=== PATIENT | male | born 1990 | race American Indian/Alaskan Native ===

== ENCOUNTER 2019-10-31 22:01 | Emergency (ER) | payer SELFPAY ==
--- NOTE | 2019-10-31 22:11 | Emergency Department Report ---
Blank Doc - Documentation Documentation: 29-year-old male that presents with left sided chest pain x2 hours. Denies any SOB. This initial assessment/diagnostic orders/clinical plan/treatment(s) is/are subject to change based on patient's health status, clinical progression and re- assessment by fellow clinical providers in the ED. Further treatment and workup at subsequent clinical providers discretion. Patient/guardians urged not to elope from the ED as their condition may be serious if not clinically assessed and managed. Initial orders include: 1- Patient sent to [facility] for further evaluation and treatment 2- CXR 3- EKG
--- NOTE | 2019-10-31 22:48 | XRay Report ---
CHEST 2 VIEWS INDICATION / CLINICAL INFORMATION: Chest pain. COMPARISON: None available. FINDINGS: SUPPORT DEVICES: None. HEART / MEDIASTINUM: No significant abnormality. LUNGS / PLEURA: No significant pulmonary or pleural abnormality. No pneumothorax. ADDITIONAL FINDINGS: No significant additional findings. IMPRESSION: 1. No acute findings. Signer Name: Elieser Danielle MD Signed: 10/31/2019 10:44 PM Workstation Name: [id number]
[2019-10-31 23:44] VITALS: BP 138/88
== END 2019-10-31 23:55 | disposition left against medical advice (07) ==
LOC: ED 22:01
DX: R07.9 Chest pain, unspecified (principal); Z53.21 Procedure and treatment not carried out due to patient leaving prior to being seen by health care provider
CPT/HCPCS: 71046; 93005; 93010

== ENCOUNTER 2019-11-02 03:12 | Emergency (ER) | payer SELFPAY ==
--- NOTE | 2019-11-02 04:52 | Emergency Department Report ---
<JACK VANESSA - Last Filed: 11/02/19 05:57> ED Psych HPI - General Stated Complaint: MH Time Seen by Provider: 11/02/19 04:52 Source: patient - History of Present Illness Initial Comments: patient forced himself in ER with delusions that someone was after him to kill him. Police was called and patient was apprehended, but remained psychotic therefore he was brought to ER for further treatment. - Related Data Home Medications Medication Instructions Recorded Confirmed Last Taken Mirtazapine [Remeron 30mg TAB] 30 mg PO QHS 11/04/19 11/04/19 Unknown Allergies Allergy/AdvReac Type Severity Reaction Status Date / Time shellfish derived Allergy Anaphylaxis Verified 10/31/19 22:13 ED Review of Systems Comment: All other systems reviewed and negative Constitutional: denies: chills ENT: denies: ear pain Respiratory: denies: cough Gastrointestinal: denies: nausea Genitourinary: denies: urgency Psychiatric: anxiety, depression, auditory hallucinations, visual hallucinations ED Past Medical Hx - Social History Smoking Status: Current Every Day Smoker Substance Use Type: Alcohol, Marijuana, Prescribed, Other - Medications Home Medications: Home Medications Medication Instructions Recorded Confirmed Last Taken Type Mirtazapine [Remeron 30mg TAB] 30 mg PO QHS 11/04/19 11/04/19 Unknown History ED Physical Exam - General General appearance: alert - Head Head exam: Present: atraumatic, normocephalic - Eye Eye exam: Present: normal appearance - ENT ENT exam: Present: mucous membranes moist - Neck Neck exam: Present: normal inspection - Respiratory Respiratory exam: Present: normal lung sounds bilaterally. Absent: respiratory distress - Cardiovascular Cardiovascular Exam: Present: regular rate, normal rhythm. Absent: systolic murmur, diastolic murmur, rubs, gallop - GI/Abdominal GI/Abdominal exam: Present: soft, normal bowel sounds - Rectal Rectal exam: Present: deferred - Extremities Exam Extremities exam: Present: normal inspection - Back Exam Back exam: Present: normal inspection - Neurological Exam Neurological exam: Present: alert, oriented X3 - Psychiatric Psychiatric exam: Present: agitated, manic - Skin Skin exam: Present: warm, dry, intact, normal color. Absent: rash ED Disposition Clinical Impression: Paranoid delusion, Acute psychosis Disposition: DC/TX-65 PSY HOSP/PSY UNIT Condition: Stable Referrals: PRIMARY CAREMD [Primary Care Provider] - 3-5 Days <ANTONELLA HYDE - Last Filed: 11/04/19 17:08> ED Review of Systems ROS: Stated complaint: MH Other details as noted in HPI ED Course Vital Signs 11/02/19 11/02/19 11/02/19 06:00 06:10 20:00 Temperature 97.6 F 97.6 F 98.3 F Pulse Rate 89 89 73 Respiratory 18 18 18 Rate Blood Pressure 114/74 Blood Pressure 114/74 120/72 [Left] O2 Sat by Pulse 99 99 100 Oximetry 11/02/19 11/03/19 11/03/19 21:44 01:00 08:00 Temperature 98.0 F 97.7 F Pulse Rate 76 83 Respiratory 18 20 18 Rate Blood Pressure Blood Pressure 117/64 117/70 [Left] O2 Sat by Pulse 99 100 Oximetry 11/03/19 11/03/19 11/03/19 13:00 20:00 21:45 Temperature 98.2 F 97.8 F Pulse Rate 92 H 72 Respiratory 18 18 18 Rate Blood Pressure Blood Pressure 113/52 107/63 [Left] O2 Sat by Pulse 98 99 99 Oximetry 11/04/19 11/04/19 11/04/19 01:35 09:20 09:52 Temperature 97.9 F 97.5 F L Pulse Rate 76 79 Respiratory 22 22 18 Rate Blood Pressure Blood Pressure 110/61 127/75 [Left] O2 Sat by Pulse 98 98 100 Oximetry 11/04/19 13:53 Temperature 98.3 F Pulse Rate 82 Respiratory 18 Rate Blood Pressure Blood Pressure 107/68 [Left] O2 Sat by Pulse 98 Oximetry ED Medical Decision Making - Lab Data Result diagrams: 11/02/19 07:15 11/02/19 07:15 Critical care attestation.: If time is entered above; I have spent that time in minutes in the direct care of this critically ill patient, excluding procedure time. ED Disposition Is pt being admited?: No Does the pt Need Aspirin: No Time of Disposition: 17:08
[2019-11-02 07:34] LABS: Basophils # (Auto) 0.1 K/mm3 (0.0-0.1); Basophils % (Auto) 1.2 % (0.0-1.8); Eosinophils # (Auto) 0.2 K/mm3 (0.0-0.4); Eosinophils % (Auto) 2.1 % (0.0-4.3); Hematocrit 41.8 % (35.5-45.6); Hemoglobin 14.1 gm/dl (11.8-15.2); Lymphocytes # (Auto) 2.1 K/mm3 (1.2-5.4); Lymphocytes % (Auto) 26.5 % (13.4-35.0); Mean Corpuscular HGB Conc 34 % (32-34); Mean Corpuscular Volume 91 fl (84-94); Monocytes # (Auto) 0.6 K/mm3 (0.0-0.8); Monocytes % (Auto) 7.1 % (0.0-7.3); Platelet Count 212 K/mm3 (140-440)
[2019-11-02 07:55] LABS: Alanine Aminotransferase 45 units/L (7-56); Albumin 4.5 g/dL (3.9-5); BUN/Creatinine Ratio 15; Blood Urea Nitrogen 18 mg/dL (9-20); Calcium 9.3 mg/dL (8.4-10.2); Hemolysis Index 8
[2019-11-02 14:39] LABS: Bilirubin,Urine NEG (Negative); Blood,Urine NEG (Negative); Color,Urine Yellow (Yellow); Mucus,Urine 3+ /HPF; Protein,Urine <15 mg/dL mg/dL (Negative); Urobilinogen,Urine < 2.0 mg/dL (<2.0)
[2019-11-02 14:45] LABS: Benzodiazepines Screen,Urine PRESUMPTIVE NEGATIVE; Cannabinoid Screen,Urine PRESUMPTIVE NEGATIVE; Methadone Screen,Urine PRESUMPTIVE NEGATIVE; Opiate Screen,Urine PRESUMPTIVE NEGATIVE
[2019-11-02 14:58] LABS: Amphetamine Screen,Urine PRESUMPTIVE POSITIVE; Cocaine Screen,Urine PRESUMPTIVE POSITIVE
[2019-11-03] MEDS ORDERED: LORazepam 2 MG/ML VIAL IM PRN (11:31)
[2019-11-03] MEDS ORDERED: HALOPERIDOL LACTATE 5 MG/1 ML INJ IM PRN (11:31)
--- NOTE | 2019-11-03 11:31 | Consultation ---
History of Present Illness - Reason for Consult Consult date: 11/03/19 Reason for consult: Paranoid - Chief Complaint Chief complaint: Amigo tried to kill me - History of Present Psychiatric Illness The patient is a 29yo single employed male with history of Paranoid Schizophrenia, Cocaine and Amphetamine use disorder who presented to the ED very paranoid stating that someone is after him and trying to kill him. He is calmer this morning but still very paranoid and anxious. He admits to have been using Cocaine and Meth. UDS is positive for Cocaine and Amphetamines. He endorses hallucinations but denies SI/HI. Per MENTAL HEALTH ASSESSMENT: Pt is a 29 year old male who broke into the ED trying to get away from his boss who he believes in trying to kill him. "My boss is after me. I work with [employer]. He took my ID because I can't get my medicine." Pt is displaying evidence of thought disorder. Pt endorses AH/VH, "yeah I can see them because the people won't pay attention; if they pay attention they can see them too. I try to show them they be moving in the dark ya know." Pt is whispering throughout the assessment and appears very paranoid. Pt is responding to internal stimuli. Pt has poor insight and judgement. Pt has poor concentration and attention. Pt presents disheveled in appearance with partial eye contact. Pt reports he has a diagnosis of. "real bad Schizophrenia at night time; so, I can go now and call my mom. I take Remeron in the morning sometime for the paranoia, and they give me the shot too at [facility] for the paranoia. It's been like a week or 2 weeks since I got it." Pt reports that he is going to kill his boss; "I got to do what I got to do; he tryn to kill me." Pt has a history of aggression where the pt was in residential for 2 years; pt was recently released. The pt becomes extremely paranoid per the mother and acts aggressively. Mother reports, "I don't know what to do; he scares me. I can't do nothing for him." Pt denies suicidal ideation. Mother reports, "he tried to kill himself quite a few times. He took alot of pills and stuff like that." Pt gives no information about this. [place]; "I can't do them shelters because those people are after me." "my momma said she can't put up with me; I see my momma, and I tell her she don't gotta worry about me cause I'm gonna be alright." Pt reports that he is employed; mother said that the pt was receiving disability before he went to residential. "I smoke both." Pt reports that he smoke cigarettes and marijuana. Pt is unable to focus to tell the amount, when he first started using and the time of last use. Pt is fixated on leaving since it is now light outside; he would like to call his mother and go find his boss. PAST PSYCHIATRIC HISTORY: Diagnoses: Schizophrenia, MDD Suicide attempts or Self-harm behavior: no Prior psychiatric hospitalizations: yes at [facility] Substance Abuse history: Cocaine and Meth Previous psychiatric medications tried: Unknown Outpatient treatment: no Family Psychiatric History None reported or documented SOCIAL HISTORY Marital Status: single Living Arrangements: Homeless, [place] Employment Status: employed Access to guns/weapons: Patient denies Education: High School History of Abuse: Patient denies Legal History: Patient denies ROS: Constitutional: Negative for weight loss ENT: Negative for stridor Respiratory: Negative for cough or hemoptysis All other systems reviewed and are negative MENTAL STATUS General Appearance and Behavior: age appropriate, dishevelled, good eye contact, cooperative with questioning and polite Cooperation: Cooperative Psychomotor Behavior: within normal limits Mood: anxious Affect and affective range: Congruent with stated mood Thought Process: Fluent/Logical and Goal-directed Thought Content: Paranoid, AH Speech: Normal volume and Regular rate and rhythm Intellectual Functioning Average Suicidal Ideation: Denies SI Homicidal Ideation: Denies HI Impulse Control: intact Insight and Judgment: normal insight and judgment Memory: Normal Attention: Normal Orientation: alert and oriented Diagnoses: Paranoid Schizophrenia Substance induced psychosis Cocaine and Amphetamine use disorder RECOMMENDATIONS MEDICATIONS: Olanzapine 5mg bid Risks, benefits and alternatives of medications discussed with the patient, questions answered and consent obtained from patient. PSYCHOTHERAPY: Supportive psychotherapy provided MEDICAL: Per primary team. 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 Please contact with any questions and/or concerns. Medications and Allergies Allergies Allergy/AdvReac Type Severity Reaction Status Date / Time shellfish derived Allergy Anaphylaxis Verified 10/31/19 22:13 Home Medications Medication Instructions Recorded Confirmed Last Taken Type Ibuprofen [Motrin] 600 mg PO Q8H PRN #60 tablet 07/11/15 Unknown Rx Penicillin Vk [Veetids TAB] 500 mg PO QID #40 tablet 07/11/15 Unknown Rx traMADoL [Ultram] 50 mg PO Q6HR PRN #14 tablet 07/11/15 Unknown Rx Mental Status Exam - Vital signs Last Vital Signs Temp 97.7 F 11/03/19 08:00 Pulse 83 11/03/19 08:00 Resp 18 11/03/19 08:00 BP 117/70 11/03/19 08:00 Pulse Ox 100 11/03/19 08:00 Results Result Diagrams: 11/02/19 07:15 11/02/19 07:15 Abnormal lab results 11/02/19 Range/Units 13:47 Ur Specific [place] 1.032 H (1.003-1.030) All other labs normal.
--- NOTE | 2019-11-04 11:35 | Progress Note ---
Subjective - Reason for Consult Consult date: 11/04/19 Reason for consult: Psych eval - Chief Complaint Chief complaint: Amigo tried to kill me SUBJECTIVE Patient is paranoid and endorses distressing auditory hallucinations. He is compliant with medications and denies side effects. ROS: Constitutional: Negative for weight loss ENT: Negative for stridor Respiratory: Negative for cough or hemoptysis All other systems reviewed and are negative MENTAL STATUS General Appearance and Behavior: age appropriate, dishevelled, good eye contact, cooperative with questioning and polite Cooperation: Cooperative Psychomotor Behavior: within normal limits Mood: anxious Affect and affective range: Congruent with stated mood Thought Process: Fluent/Logical and Goal-directed Thought Content: Paranoid, AH Speech: Normal volume and Regular rate and rhythm Intellectual Functioning Average Suicidal Ideation: Denies SI Homicidal Ideation: Denies HI Impulse Control: intact Insight and Judgment: normal insight and judgment Memory: Normal Attention: Normal Orientation: alert and oriented Diagnoses: Paranoid Schizophrenia Substance induced psychosis Cocaine and Amphetamine use disorder RECOMMENDATIONS MEDICATIONS: Continue Olanzapine 5mg bid Risks, benefits and alternatives of medications discussed with the patient, questions answered and consent obtained from patient. PSYCHOTHERAPY: Supportive psychotherapy provided MEDICAL: Per primary team. HEALTHCARE LIAISON: Yes DISPOSITION: Acute inpatient psychiatric hospitalization when medically stable LEGAL STATUS: 1013 FOLLOW-UP: Will follow I have reviewed this treatment plan, including potential risks and benefits of medications, with the patient and/or family members and relevant hospital providers. Please contact with any questions and/or concerns. Mental Status Exam - Vital signs Last Vital Signs Temp 97.5 F L 11/04/19 09:52 Pulse 79 11/04/19 09:52 Resp 18 11/04/19 09:52 BP 127/75 11/04/19 09:52 Pulse Ox 100 11/04/19 09:52
[2019-11-04 13:54] VITALS: BP 107/68
[2019-11-04] MEDS ORDERED: MIRTAZAPINE 30 MG TAB PO SCH (22:00)
== END 2019-11-04 17:23 ==
LOC: ED 03:12
DX: F22 Delusional disorders (principal); F23 Brief psychotic disorder; F41.9 Anxiety disorder, unspecified; F12.10 Cannabis abuse, uncomplicated; F17.200 Nicotine dependence, unspecified, uncomplicated; Z79.899 Other long term (current) drug therapy; Z91.013 Allergy to seafood
CPT/HCPCS: 36415; 80053; 80307; 80320; 81001; 85025; G0480

== ENCOUNTER 2019-11-07 23:39 | Emergency (ER) | payer SELFPAY ==
[2019-11-08] MEDS ORDERED: diphenhydrAMINE 50 MG/ML VIAL IM ONE (00:19)
[2019-11-08] MEDS ORDERED: METOCLOPRAMIDE 10 MG/2 ML INJ IM ONE (00:19)
[2019-11-08] MEDS ORDERED: KETOROLAC 60 MG/2 ML INJ IM ONE (00:19)
--- NOTE | 2019-11-08 00:23 | Emergency Department Report ---
<DESIRE ALEXIS - Last Filed: 11/08/19 04:18> ED Psych HPI - General Chief Complaint: Psych Stated Complaint: MIGRAINE Time Seen by Provider: 11/08/19 00:07 Source: patient Mode of arrival: Ambulatory Limitations: No Limitations - History of Present Illness Initial Comments: 29-year-old male with a past medical history of paranoia, depression, bronchitis presents to the hospital with complaints of headache and suicidal ideation. Patient was just here for acute psychosis on November 01 and subsequently transferred to [facility] on November 03. Patient states he just wanted to get out of [facility]. He is taking the Risperdal as prescribed but states it causes him to have a migraine headache and his body to lock up. Patient denies a doctor diagnosis of migraines. Patient is having a 8/10 right-sided headache with mild blurry vision without nausea or vomiting. Patient is having some light sensitivity while looking at LED lights. When patient presented here several days ago UDS was positive for amphetamines and patient admitted to taking ecstasy at that time. Patient admits to petey radha use since discharge from [facility] but denies any other substance use at this time. Patient does feel like the Risperdal is helping to him to clear his mind and processed thoughts better. Patient states he is suicidal but does not have a plan. - Related Data Home Medications Medication Instructions Recorded Confirmed Last Taken Mirtazapine [Remeron 30mg TAB] 30 mg PO QHS 11/04/19 11/08/19 Unknown Allergies Allergy/AdvReac Type Severity Reaction Status Date / Time shellfish derived Allergy Anaphylaxis Verified 10/31/19 22:13 ED Review of Systems Comment: All other systems reviewed and negative ED Past Medical Hx - Past Medical History Previous Medical History?: Yes Hx Psychiatric Treatment: Yes (paranoid, depression) Additional medical history: Bronchitis - Surgical History Past Surgical History?: No - Social History Smoking Status: Current Every Day Smoker Substance Use Type: Alcohol, Cocaine, Marijuana - Medications Home Medications: Home Medications Medication Instructions Recorded Confirmed Last Taken Type Mirtazapine [Remeron 30mg TAB] 30 mg PO QHS 11/04/19 11/08/19 Unknown History ED Physical Exam - General Limitations: No Limitations - Other Other exam information: General: No acute distress Head: Atraumatic Eyes: normal appearance ENT: Moist mucous membranes Neck: Normal appearance, no midline tenderness, no nuchal rigidity Chest: Clear to auscultation bilaterally CV: Regular rate and rhythm Abdomen: Soft, normal bowel sounds, nontender, nondistended, no rebound or guarding Back: Normal inspection Extremity: Normal inspection, full range of motion Neuro: Alert O x 3, no facial asymmetry, speech clear, no gross motor sensory deficit Psych: Appropriate behavior Skin: No rash ED Medical Decision Making - Lab Data Result diagrams: 11/08/19 00:15 11/08/19 00:15 - Radiology Data Radiology results: report reviewed CT HEAD/BRAIN WO CON INDICATION / CLINICAL INFORMATION: Pt complains of a headache with pain mostly on the right side. TECHNIQUE: All CT scans at this location are performed using CT dose reduction for ALARA by means of automated exposure control. COMPARISON: None available. FINDINGS: The ventricular system is normal in size and configuration. No focal lesion or mass effect is seen. There is no evidence of intracranial hemorrhage or major vessel occlusion. The calvarium is intact. The visualized paranasal sinuses and mastoid air cells are clear. IMPRESSION: No acute abnormality. - Medical Decision Making Patient returns to the ED stating that the Risperdal is causing him to have a migraine headache and caused his body to lock up. Medical evaluation is unremarkable including CT head. Patient just was discharged from [facility] after being medically cleared here after presenting with psychosis and UDS positive for cocaine and amphetamines (patient admitted to ecstasy use). UDS is positive for cocaine at this time. Is unclear patient is continuing to use cocaine or if it is still positive from recent use. Pt is medically cleared for psych eval. 1013 signed - Differential Diagnosis Drug abuse, migraine, ICH, psychosis, suicidal Critical Care Time: No ED Disposition Clinical Impression: Paranoid delusion, Cocaine abuse, Acute hyperactive cannabis intoxication delirium Disposition: DC-01 TO HOME OR SELFCARE Is pt being admited?: No Does the pt Need Aspirin: No Condition: Stable <ANTONELLA HYDE - Last Filed: 11/08/19 12:11> ED Review of Systems ROS: Stated complaint: MIGRAINE Other details as noted in HPI ED Course Vital Signs 11/07/19 11/08/19 23:51 04:05 Temperature 97.9 F 97.8 F Pulse Rate 112 H 87 Respiratory 20 18 Rate Blood Pressure 134/82 Blood Pressure 98/64 [Right] O2 Sat by Pulse 96 98 Oximetry - Reevaluation(s) Reevaluation #1: 11/08/19 12:10 KEMAR LEE Male : 1990 MedRec# [id number] 11/08/19 10:00 - Crowd Controller's Note by RADHA BUSH Acct Num: [id number] : 1990 Patient Age: 29 MENTAL HEALTH ASSESSMENT COMPLETED: Pt is a 29 year old AA male who presents to the ER for headaches which the pt believes is possibly caused by his medications. Pt carries a diagnosis of Paranoid Schizophrenia. The pt was seen in the ED last week for paranoia, HI and SI. The pt was transferred to [facility] where the pt was stabilized. The pt reports no SI, HI or paranoia at this time. The pt has been compliant with his medications. The pt has no current outpatient providers. Pt is displaying no signs of thought disorder/psychosis. Pt is oriented x 4. Pt is able to identify the stressor that led him to come to the ED (pt reports he is having a headache and believes that it might be related to his medications.). Pt has good concentration, attention and memory. The pt is calm with congruent affect. The pt displayed good judgment by coming to the ED for headaches. Pt reports he is not currently suicidal; pt has no thoughts, plans or intent to harm himself. Pt reports that he told the nurse at the front he was having suicidal thoughts in the past, but he is not feeling this way currently. Pt reports that he came due to side effects of his medications. Pt denies any homicidal thoughts, plans or intent. Pt reports that he used, "a little marijuana yesterday;" pt's tox was negative for marijuana, but pt was postive for cocaine; however, pt reports he has not used any other substances since being admitted to [facility]. [place] near [facility]. Pt stated that he did not like staying at [facility] and [facility]; pt is open to looking at other skilled nursing options. Crowd Controller gave the pt information for [facility]'s 3rd floor mental health/homeless program and information for [facility]. RECOMMENDATION: Rescind 1013, provide outpatient referrals and list of skilled nursing resources. Radha Smith LPC Initialized on 11/08/19 10:00 - END OF NOTE ED Medical Decision Making - Lab Data Result diagrams: 11/08/19 00:15 11/08/19 00:15 - Radiology Data Findings [facility] [address] [place] [address] Cat Scan Report Signed Patient: KEMAR LEE MR#: [id number] : 1990 Acct:[id number] Age/Sex: 29 / M ADM Date: 11/07/19 Loc: ED Attending Dr: Ordering Physician: DESIRE ALEXIS MD Date of Service: 11/08/19 Procedure(s): CT head/brain wo con Accession Number(s): [id number] cc: DESIRE ALEXIS MD CT HEAD/BRAIN WO CON INDICATION / CLINICAL INFORMATION: Pt complains of a headache with pain mostly on the right side. TECHNIQUE: All CT scans at this location are performed using CT dose reduction for ALARA by means of automated exposure control. COMPARISON: None available. FINDINGS: The ventricular system is normal in size and configuration. No focal lesion or mass effect is seen. There is no evidence of intracranial hemorrhage or major vessel occlusion. The calvarium is intact. The visualized paranasal sinuses and mastoid air cells are clear. IMPRESSION: No acute abnormality. Signer Name: Kin Lee MD Signed: 11/08/2019 12:54 AM Workstation Name: [id number] Critical care attestation.: If time is entered above; I have spent that time in minutes in the direct care of this critically ill patient, excluding procedure time. ED Disposition Is pt being admited?: No Does the pt Need Aspirin: No Time of Disposition: 12:11
[2019-11-08 00:47] LABS: Basophils % (Auto) 0.6 % (0.0-1.8); Eosinophils # (Auto) 0.1 K/mm3 (0.0-0.4); Hematocrit 40.6 % (35.5-45.6); Hemoglobin 13.9 gm/dl (11.8-15.2); Lymphocytes # (Auto) 1.9 K/mm3 (1.2-5.4); Lymphocytes % (Auto) 25.3 % (13.4-35.0); Mean Corpuscular HGB Conc 34 % (32-34); Mean Corpuscular Volume 91 fl (84-94); Monocytes # (Auto) 0.6 K/mm3 (0.0-0.8); Monocytes % (Auto) 8.2 % (0.0-7.3); Platelet Count 217 K/mm3 (140-440); Red Blood Count 4.48 M/mm3 (3.65-5.03); Red Cell Distribution Width 14.6 % (13.2-15.2)
--- NOTE | 2019-11-08 00:58 | Cat Scan Report ---
CT HEAD/BRAIN WO CON INDICATION / CLINICAL INFORMATION: Pt complains of a headache with pain mostly on the right side. TECHNIQUE: All CT scans at this location are performed using CT dose reduction for ALARA by means of automated e xposure control. COMPARISON: None available. FINDINGS: The ventricular system is normal in size and configuration. No focal lesion or mass effect is seen. T here is no evidence of intracranial hemorrhage or major vessel occlusion. The calvarium is intact. The visualized paranasal sinuses and mastoid air cells are clear. IMPRESSION: No acute abnormality. Signer Name: Kin Lee MD Signed: 11/08/2019 12:54 AM Workstation Name: [id number]
[2019-11-08 01:03] LABS: BUN/Creatinine Ratio 10; Blood Urea Nitrogen 10 mg/dL (9-20); Calcium 9.5 mg/dL (8.4-10.2); Hemolysis Index 10
[2019-11-08 03:26] LABS: Mucus,Urine 3+ /HPF
[2019-11-08 03:27] LABS: Bilirubin,Urine NEG (Negative); Blood,Urine NEG (Negative); Color,Urine Amber (Yellow)
[2019-11-08 04:06] LABS: Amphetamine Screen,Urine PRESUMPTIVE NEGATIVE; Benzodiazepines Screen,Urine PRESUMPTIVE NEGATIVE; Cannabinoid Screen,Urine PRESUMPTIVE NEGATIVE; Methadone Screen,Urine PRESUMPTIVE NEGATIVE; Opiate Screen,Urine PRESUMPTIVE NEGATIVE
[2019-11-08 04:22] LABS: Cocaine Screen,Urine PRESUMPTIVE POSITIVE
[2019-11-08 05:09] VITALS: BP 98/64
== END 2019-11-08 15:20 | disposition home or self-care (01) ==
LOC: ED 23:39 → EEVIPCON 23:39 → ED 11-08 15:20
DX: F22 Delusional disorders (principal); F12.921 Cannabis use, unspecified with intoxication delirium; F14.10 Cocaine abuse, uncomplicated
CPT/HCPCS: 36415; 70450; 80048; 80307; 81001; 82550; 85025; 96372; 99284; J1200; J1885; J2765; 80320; G0480

== ENCOUNTER 2019-11-10 18:41 | Emergency (ER) | payer SELFPAY ==
[2019-11-10] MEDS ORDERED: LORazepam 2 MG/ML VIAL IM PRN (19:14)
[2019-11-10 21:19] LABS: Basophils % (Auto) 0.3 % (0.0-1.8); Eosinophils % (Auto) 0.3 % (0.0-4.3); Hematocrit 41.7 % (35.5-45.6); Hemoglobin 14.1 gm/dl (11.8-15.2); Lymphocytes # (Auto) 1.3 K/mm3 (1.2-5.4); Lymphocytes % (Auto) 15.1 % (13.4-35.0); Mean Corpuscular HGB Conc 34 % (32-34); Mean Corpuscular Volume 90 fl (84-94); Monocytes # (Auto) 0.6 K/mm3 (0.0-0.8); Monocytes % (Auto) 6.5 % (0.0-7.3); Platelet Count 230 K/mm3 (140-440); Red Blood Count 4.63 M/mm3 (3.65-5.03); Red Cell Distribution Width 14.5 % (13.2-15.2)
[2019-11-10 21:49] LABS: Alanine Aminotransferase 13 units/L (7-56); Albumin 4.7 g/dL (3.9-5); BUN/Creatinine Ratio 12; Blood Urea Nitrogen 13 mg/dL (9-20); Calcium 9.6 mg/dL (8.4-10.2); Hemolysis Index 9
--- NOTE | 2019-11-10 21:54 | Emergency Department Report ---
HPI - General Chief Complaint: Psych Time Seen by Provider: 11/10/19 19:13 - HPI HPI: 29-year-old -[place] male presents to the emergency department for a mental health evaluation. The patient was recently at [facility] as of the end of October. The patient also came through this emergency department 2 days ago with a complaint of some suicidal ideations. He was ultimately discharged and apparently did not meet criteria for inpatient psychiatric treatment at that time. He says that he met with the rn social work here and was given some referrals for shelters. However, "because of coronavirus" he was unable to get into 1 of the shelters. The patient says that he is homeless and ultimately was able to find some correction in a local abandoned house/building where there are other squatters who will allow him to spend the evening and it often involves doing some drugs. The patient presents today with the complaint of paranoid delusions and says that he feels that someone is trying to kill him. He says that he has not been able to "get my mind right" and is concerned that it is present state of mind that he might harm somebody or himself. ED Past Medical Hx - Past Medical History Previous Medical History?: Yes Hx Psychiatric Treatment: Yes (paranoid, depression) Additional medical history: Bronchitis - Surgical History Past Surgical History?: No - Social History Smoking Status: Current Every Day Smoker Substance Use Type: Alcohol, Cocaine, Marijuana - Medications Home Medications: Home Medications Medication Instructions Recorded Confirmed Last Taken Type Mirtazapine [Remeron 30mg TAB] 30 mg PO QHS 11/04/19 11/10/19 Unknown History ED Review of Systems ROS: Stated complaint: PSYCH EVAL Other details as noted in HPI Comment: All other systems reviewed and negative Constitutional: denies: chills, fever Respiratory: denies: cough, shortness of breath Cardiovascular: denies: chest pain Gastrointestinal: denies: abdominal pain, vomiting Neurological: denies: headache, weakness Psychiatric: depression, homicidal thoughts, suicidal thoughts Physical Exam - Physical Exam Vital Signs: Vital Signs 11/10/19 11/10/19 18:51 19:14 Temperature 99.8 F H Pulse Rate 122 H Blood Pressure 140/77 O2 Sat by Pulse 97 Oximetry ED Course Vital Signs 11/10/19 11/10/19 18:51 19:14 Temperature 99.8 F H Pulse Rate 122 H Blood Pressure 140/77 O2 Sat by Pulse 97 Oximetry ED Medical Decision Making - Lab Data Result diagrams: 11/10/19 21:08 11/10/19 21:08 - EKG Data -: EKG Interpreted by Me EKG shows normal: sinus rhythm, axis, intervals, QRS complexes, ST-T waves Rate: normal - EKG Data When compared to previous EKG there are: previous EKG unavailable Interpretation: normal EKG Critical care attestation.: If time is entered above; I have spent that time in minutes in the direct care of this critically ill patient, excluding procedure time. ED Disposition Clinical Impression: Medical clearance for psychiatric admission, Paranoid delusion, Cocaine abuse Disposition: [id number] PSY HOSP/PSY UNIT Is pt being admited?: No Condition: Stable Time of Disposition: 16:15
[2019-11-10 22:21] LABS: Bacteria,Urine 1+ /HPF (Negative); Bilirubin,Urine NEG (Negative); Blood,Urine MOD (Negative); Color,Urine Yellow (Yellow); Mucus,Urine 3+ /HPF
[2019-11-10 22:28] LABS: Benzodiazepines Screen,Urine PRESUMPTIVE NEGATIVE; Cannabinoid Screen,Urine PRESUMPTIVE NEGATIVE; Methadone Screen,Urine PRESUMPTIVE NEGATIVE; Opiate Screen,Urine PRESUMPTIVE NEGATIVE
[2019-11-10 23:01] LABS: Amphetamine Screen,Urine PRESUMPTIVE POSITIVE; Cocaine Screen,Urine PRESUMPTIVE POSITIVE
[2019-11-12 02:03] VITALS: BP 106/73
--- NOTE | 2019-11-12 11:09 | Consultation ---
History of Present Illness - Reason for Consult Consult date: 11/12/19 Reason for consult: Psych eval - Chief Complaint Chief complaint: I want to go to a program - History of Present Psychiatric Illness The patient is a 29yo single unemployed homeless male with history of Paranoid Schizophrenia, Cocaine and Amphetamine use disorder who presented to the ED stating that he is suicidal and homicidal. This patient is well known here and was recently admitted to [facility]. He admits to have been using Cocaine and Meth. UDS is positive for Cocaine and Amphetamines. This morning, he is alert, fully oriented and states that he wants to be sent to a program, that he is homeless and has no where to stay. Per MENTAL HEALTH ASSESSMENT: Pt is a 29 yo AA male presenting to ED for MHE, as pt stated Im going to hurt somebody during admission. Pt is known to [facility] Psych Department and has been seen 3 times within the past 7 days. Pt was transferred to [facility] 11/04/2019 and returned to ED 11/07, which resulted in psych clearance and discharge with OP resources provided. During ax, pt stated Well it was scot fault that Im in this situation because scot was supposed to get me in a program. Pt then continued to tell director speech that [facility] did not accept him into their homeless detention. Pt presents as lucid, informing director speech that he last came to the ED because he wanted his medication changed due to the side effects and that he was provided with homeless resources instead. Pt is alert and oriented x 4, and no outburst were displayed during assessment. Pt has a dx of Paranoid Schizophrenia and denied connection to OP tx, informing director speech that he is homeless and does not have any money. 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 Pt identifies last use as Monday. Pt identified V/H of seeing footsteps and paranoia, informing director speech that he believes people are following him. Pt informed director speech that he was a danger to himself/other people and that he might hurt somebody if they come close to him. PAST PSYCHIATRIC HISTORY: Diagnoses: Schizophrenia, MDD Suicide attempts or Self-harm behavior: no Prior psychiatric hospitalizations: yes at [facility] Substance Abuse history: Cocaine and Meth Previous psychiatric medications tried: Unknown Outpatient treatment: no Family Psychiatric History None reported or documented SOCIAL HISTORY Marital Status: single Living Arrangements: Homeless, lives under the bridge Employment Status: employed Access to guns/weapons: Patient denies Education: High School History of Abuse: Patient denies Legal History: Patient denies ROS: Constitutional: Negative for weight loss ENT: Negative for stridor Respiratory: Negative for cough or hemoptysis All other systems reviewed and are negative MENTAL STATUS General Appearance and Behavior: age appropriate, dishevelled, good eye contact, cooperative with questioning and polite Cooperation: Cooperative Psychomotor Behavior: within normal limits Mood: anxious Affect and affective range: Congruent with stated mood Thought Process: Fluent/Logical and Goal-directed Thought Content: Paranoid, AH Speech: Normal volume and Regular rate and rhythm Intellectual Functioning Average Suicidal Ideation: SI Homicidal Ideation: Denies HI Impulse Control: intact Insight and Judgment: normal insight and judgment Memory: Normal Attention: Normal Orientation: alert and oriented Diagnoses: Paranoid Schizophrenia Substance induced psychosis Cocaine and Amphetamine use disorder Seeking Secondary gains RECOMMENDATIONS MEDICATIONS: Will give a prescription of Olanzapine 5mg bid Risks, benefits and alternatives of medications discussed with the patient, questions answered and consent obtained from patient. PSYCHOTHERAPY: Supportive psychotherapy provided MEDICAL: Per primary team. 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 Acute psychiatric inpatient treatment is contraindicated as it will reinforce maladaptive behaviors. LEGAL STATUS: 1013 rescinded FOLLOW-UP: Will sign off Please contact with any questions and/or concerns. Medications and Allergies Allergies Allergy/AdvReac Type Severity Reaction Status Date / Time shellfish derived Allergy Anaphylaxis Verified 10/31/19 22:13 Home Medications Medication Instructions Recorded Confirmed Last Taken Type Mirtazapine [Remeron 30mg TAB] 30 mg PO QHS 11/04/19 11/10/19 Unknown History Active Meds: Active Medications Lorazepam (Ativan) 1 mg IM PRN PRN PRN Reason: Agitation Last Admin: 11/10/19 20:28 Dose: 1 mg Documented by: Mental Status Exam - Vital signs Last Vital Signs Temp 97.7 F 11/12/19 02:02 Pulse 76 11/12/19 02:02 Resp 16 11/12/19 02:02 BP 106/73 11/12/19 02:02 Pulse Ox 98 11/12/19 02:02 Results Result Diagrams: 11/10/19 21:08 11/10/19 21:08 All other labs normal.
== END 2019-11-12 12:30 | disposition home or self-care (01) ==
LOC: ED 18:41 → EEVIPCON 18:41 → ED 11-12 12:30
DX: F20.0 Paranoid schizophrenia (principal); F14.10 Cocaine abuse, uncomplicated; F17.200 Nicotine dependence, unspecified, uncomplicated; Z04.6 Encounter for general psychiatric examination, requested by authority; Z79.899 Other long term (current) drug therapy; Z91.013 Allergy to seafood
CPT/HCPCS: 36415; 80053; 80307; 81001; 82550; 83735; 84443; 85025; 93005; 93010; 99283; J2060; 80320; G0480

== ENCOUNTER 2021-03-09 22:21 | Emergency (ER) | payer SELFPAY | END 2021-03-10 00:01 | disposition left against medical advice (07) | LOC: ED 22:21 | DX: Z01.89 Encounter for other specified special examinations (principal); Z53.21 Procedure and treatment not carried out due to patient leaving prior to being seen by health care provider ==

== ENCOUNTER 2021-11-08 16:20 | Emergency (ER) | payer SELFPAY ==
[2021-11-08] MEDS ORDERED: HALOPERIDOL LACTATE 5 MG/1 ML INJ IM PRN (16:49)
[2021-11-08] MEDS ORDERED: diphenhydrAMINE 50 MG/ML VIAL IM PRN (16:49)
[2021-11-08] MEDS ORDERED: LORazepam 2 MG/ML VIAL IM PRN (16:49)
[2021-11-08] MEDS ORDERED: LORazepam 2 MG/ML VIAL IV PRN ×3 (16:49)
[2021-11-08] MEDS ORDERED: TETANUS,DIPH,PERTUSS(ACELL) VACCINE 0.5 ML SYRINGE IM ONE (16:52)
--- NOTE | 2021-11-08 16:56 | Emergency Department Report ---
HPI - General Chief Complaint: Psych Time Seen by Provider: 11/08/21 16:41 - HPI HPI: Room 15 Patient is a 31-year-old male present with a chief complaint of suicidal ideation. Patient states he is felt suicidal for approximate 1 week but last night attempted to kill himself by using topical metal fence post to cut his left wrist. The patient states "I tried to kill myself." ED Past Medical Hx - Past Medical History Hx Psychiatric Treatment: Yes (paranoid, depression) Additional medical history: Bronchitis - Surgical History Past Surgical History?: No - Family History Family history: no significant - Social History Smoking Status: Current Every Day Smoker Substance Use Type: Alcohol (Daily alcohol consumption, when asked how much patient replies "a lot."), Other (Patient admits to using recreational drugs, ask him which ones he states "what ever I can get ") - Medications Home Medications: Home Medications Medication Instructions Recorded Confirmed Last Taken Type Mirtazapine [Remeron 30mg TAB] 30 mg PO QHS 11/04/19 11/10/19 Unknown History OLANzapine [ZyPREXA] 5 mg PO BID #30 tablet 11/12/19 Unknown Rx ED Review of Systems ROS: Stated complaint: CUT /LFT WRIST Other details as noted in HPI Constitutional: no symptoms reported Eyes: denies: eye pain ENT: denies: throat pain Respiratory: no symptoms reported Cardiovascular: denies: chest pain Endocrine: no symptoms reported Gastrointestinal: denies: abdominal pain Genitourinary: denies: dysuria Musculoskeletal: denies: back pain Neurological: denies: headache Psychiatric: suicidal thoughts Physical Exam - Physical Exam Vital Signs: Vital Signs 11/08/21 16:27 Temperature 98.0 F Pulse Rate 114 H Respiratory 20 Rate Blood Pressure 135/89 O2 Sat by Pulse 97 Oximetry Physical Exam: GENERAL: The patient is well-developed well-nourished male lying on chair not appearing to be in acute distress. [] HEENT: Normocephalic. Atraumatic. Extraocular motions are intact. Patient has moist mucous membranes. NECK: Supple. Trachea midline CHEST/LUNGS: Clear to auscultation. There is no respiratory distress noted. HEART/CARDIOVASCULAR: Regular. There is no tachycardia. There is no gallop rub or murmur. 2+ left radial pulse ABDOMEN: Abdomen is soft, nontender. Patient has normal bowel sounds. There is no abdominal distention. SKIN: There is an approximately 3 cm triangular laceration to the left wrist with mild surrounding erythema NEURO: The patient is awake, alert, and oriented. The patient is cooperative. The patient has no focal neurologic deficits. The patient has normal speech. GCS 15 MUSCULOSKELETAL: There is no limitation range of motion. ED Course Vital Signs 11/08/21 16:27 Temperature 98.0 F Pulse Rate 114 H Respiratory 20 Rate Blood Pressure 135/89 O2 Sat by Pulse 97 Oximetry ED Medical Decision Making - Medical Decision Making Will not close laceration Byck primary closure secondary to length of time the wound has been open and its current appearance. Will initiate antibiotics - Differential Diagnosis Suicidal ideation, wrist laceration, cellulitis Critical care attestation.: If time is entered above; I have spent that time in minutes in the direct care of this critically ill patient, excluding procedure time. ED Disposition Clinical Impression: Suicidal ideation, Laceration of left wrist Disposition: [address] [place] [address] Is pt being admited?: No Does the pt Need Aspirin: No Condition: Stable
[2021-11-08] MEDS: cephALEXin 500 MG CAP PO SCH (17:08)
[2021-11-08 21:10] LABS: Bilirubin,Urine NEG (Negative); Blood,Urine NEG (Negative); Color,Urine Amber (Yellow); Mucus,Urine 2+ /HPF
[2021-11-08 21:15] LABS: Amphetamine Screen,Urine Negative; Benzodiazepines Screen,Urine Negative; Cannabinoid Screen,Urine Negative; Methadone Screen,Urine Negative; Opiate Screen,Urine Negative
[2021-11-08 22:01] LABS: Cocaine Screen,Urine Positive
[2021-11-09] MEDS: cephALEXin 500 MG CAP PO SCH ×3 (00:16→12:11)
[2021-11-09 03:17] VITALS: BP 112/58
--- NOTE | 2021-11-09 10:26 | Consultation ---
History of Present Illness - Reason for Consult Consult date: 11/09/21 Reason for consult: SI - History of Present Psychiatric Illness The patient is a 31 year old male with history of schizophrenia and polysubstance abuse. The patient was seen this morning. He reports cutting himself; on assessment the patient has a superficial cut to his left hand. He states he is noncompliant with medications. PAST PSYCHIATRIC HISTORY: Diagnoses: Schizophrenia, MDD Suicide attempts or Self-harm behavior: no Prior psychiatric hospitalizations: yes at [facility] Substance Abuse history: Cocaine and Meth " everything" Previous psychiatric medications tried: Unknown Outpatient treatment: unknown Family Psychiatric History None reported or documented SOCIAL HISTORY Marital Status: single Living Arrangements: Homeless, lives [place] the bridge Employment Status: employed Access to guns/weapons: Patient denies Education: High School History of Abuse: Patient denies Legal History: Patient denies ROS: Constitutional: Negative for weight loss ENT: Negative for stridor Respiratory: Negative for cough or hemoptysis All other systems reviewed and are negative MENTAL STATUS General Appearance and Behavior: age appropriate, dishevelled, good eye contact, cooperative with questioning and polite Cooperation: Cooperative Psychomotor Behavior:within normal limits Mood: pk Affect and affective range:Congruent with stated mood Thought Process:Fluent/Logical and Goal-directed Thought Content:goal directed Speech:Normal volume and Regular rate and rhythm Intellectual Functioning:Average Suicidal Ideation:SI Homicidal Ideation:Denies HI Impulse Control:intact Insight and Judgment:normal insight and judgment Memory:Normal Attention:Normal Orientation:alert and oriented Diagnoses: Paranoid Schizophrenia Substance induced psychosis Cocaine and Amphetamine use disorder Seeking Secondary gains RECOMMENDATIONS MEDICATIONS: Olanzapine 5mg bid Risks, benefits and alternatives of medications discussed with the patient, questions answered and consent obtained from patient. PSYCHOTHERAPY: Supportive psychotherapy provided MEDICAL: Per primary team. 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 Acute psyc hiatric inpatient treatment is contraindicated as it will reinforce maladaptive behaviors. LEGAL STATUS: 1013 rescinded FOLLOW-UP: Will sign off Please contact with any questions and/or concerns. Medications and Allergies Allergies Allergy/AdvReac Type Severity Reaction Status Date / Time shellfish derived Allergy Anaphylaxis Verified 10/31/19 22:13 Home Medications Medication Instructions Recorded Confirmed Last Taken Type Mirtazapine [Remeron 30mg TAB] 30 mg PO QHS 11/04/19 11/10/19 Unknown History OLANzapine [ZyPREXA] 5 mg PO BID #30 tablet 11/12/19 Unknown Rx OLANZapine [Zyprexa] 5 mg PO BID 30 Days #60 11/09/21 Unknown Rx Active Meds: Active Medications Cephalexin (Cephalexin 500 Mg Cap) 500 mg PO Q6H [facility]; Protocol Stop: 11/14/21 17:00 Last Admin: 11/09/21 09:56 Dose: Not Given Diphenhydramine HCl (Diphenhydramine 50 Mg/Ml Vial) 50 mg IM Q6H PRN PRN Reason: Agitation Haloperidol Lactate (Haloperidol Lactate 5 Mg/1 Ml Inj) 10 mg IM Q8H PRN PRN Reason: Agitation Lorazepam (Lorazepam 2 Mg/Ml Vial) 2 mg IM Q8H PRN PRN Reason: Agitation Lorazepam (Lorazepam 2 Mg/Ml Vial) 2 mg IV Q1HR PRN PRN Reason: CIWA-Ar 8-15 Lorazepam (Lorazepam 2 Mg/Ml Vial) 4 mg IV Q1HR PRN PRN Reason: CIWA-Ar 16-25 Lorazepam (Lorazepam 2 Mg/Ml Vial) 4 mg IV Q15MIN PRN PRN Reason: CIWA-Ar >25 Mental Status Exam - Vital signs Last Vital Signs Temp 98.0 F 11/09/21 02:32 Pulse 75 11/09/21 02:32 Resp 16 11/09/21 02:32 BP 112/58 11/09/21 02:32 Pulse Ox 100 11/09/21 04:51 Results All other labs normal.
--- NOTE | 2021-11-09 12:38 | Event Note ---
S: patient here 2/2 suicidal ideations. No significant events over night. Denies SI, HI. Was seen by psych this morning (Ivana Faye NP) who rescinded the 1013, recommended home discharge with Rx for olanzapine (which she wrote) after consultation with her attending (Dr. Fuentes). Last tetanus shot was 1 year ago. O: VS wnl HEENT: MMM; airway patent; EOMI; PERRLA Resp: CTAB; good air entry Abd: non tender; non distended; Ext: no LE edema; non tender calves; neg Mayda's sign bilaterally; abrasion in L ventral wrist Psych: no SI or HI A: - L wrist abrasion - schizophrenia - Substance abuse P: discharge patient home to FU with outpatient psych.
== END 2021-11-09 13:05 | disposition home or self-care (01) ==
LOC: ED 16:20 → EEVIPCON 16:20 → ED 11-09 13:05
DX: S61.512A Laceration without foreign body of left wrist, initial encounter (principal); R45.851 Suicidal ideations; F17.200 Nicotine dependence, unspecified, uncomplicated; F10.20 Alcohol dependence, uncomplicated; Z20.822 Contact with and (suspected) exposure to COVID-19; X58.XXXA Exposure to other specified factors, initial encounter; Y93.89 Activity, other specified; Y92.89 Other specified places as the place of occurrence of the external cause; Y99.8 Other external cause status
CPT/HCPCS: 80307; 81001; 96372; 99284; J1200; J1630; J2060; U0003; 90715